=== PATIENT | female | born 1985 | race Caucasian/White ===

== ENCOUNTER 2018-09-15 23:11 | Emergency (ER) | payer OTHER ==
--- NOTE | 2018-09-15 23:24 | EDPHY ---
H & P Stated Complaint: dry cough aches sob Time Seen by Provider: 09/15/18 23:24 HPI/ROS: HPI CHIEF COMPLAINT: Cough HISTORY OF PRESENT ILLNESS: A 33-year-old female presents emergency room with cough. She has been sick since this or Thursday. It is now late Thursday night. She presents to the emergency room with a cough nonproductive , laryngitis, and shortness of breath. She denies any pleuritic pain or chest pain. States she does have a productive cough clear irving. No blood. Additionally reports some intermittent wheezing. She does have a history of asthma but never intubated or hospitalized. Past Medical History: Asthma Past Surgical History: No recent surgery Social History: Denies drugs alcohol tobacco Family History: Noncontributory ROS REVIEW OF SYSTEMS: 10 Systems were reviewed and negative with the exception of the elements mentioned in the history of present illness. Exam Constitutional appears well nontoxic no acute distress triage nursing summary reviewed, vital signs reviewed, awake/alert. Vital signs are stable afebrile nontoxic Eyes normal conjunctivae and sclera, EOMI, PERRLA. HENT posterior pharynx unremarkable, TMs clear, normal inspection, atraumatic, moist mucus membranes, no epistaxis, neck supple/ no meningismus, no raccoon eyes. Respiratory bronchitic sounding cough on exam. No significant wheezing. Good air movement. Cardiovascular rate normal, regular rhythm, no murmur, no edema, distal pulses normal. Gastrointestinal soft, non-tender, no rebound, no guarding, normal bowel sounds, no distension, no pulsatile mass. Genitourinary no CVA tenderness. Musculoskeletal no midline vertebral tenderness, full range of motion, no calf swelling, no tenderness of extremities, no meningismus, good pulses, neurovascularly intact. Skin pink, warm, & dry, no rash, skin atraumatic. Neurologic awake, alert and oriented x 3, AAOx3, moves all 4 extremities equally, motor intact, sensory intact, CN II-XII intact, normal cerebellar, normal vision, normal speech. Psychiatric normal mood/affect. Heme/Lymph/Immune no lymphadenopathy. Differential Diagnosis: Includes but is not limited to in a particular order viral syndrome, URI, tightness, pneumonia, asthma, reactive airway disease, influenza Medical Decision Making: Plan for this patient chest x-ray two view, DuoNeb breathing treatment, prednisone 60 mg, influenza and re-evaluate. Re-evaluation: Chest x-ray two view reviewed by myself. Negative for acute cardiopulmonary disease. 1255: Patient re-evaluated this time good air movement bilaterally. No acute distress. No wheezing. No hypoxia on the monitor patient requesting discharge home. Chest x-ray reviewed shows no pneumonia or disease process. Plan for patient take, albuterol inhaler 2 puffs every 4 hr as needed, prednisone x5 days, azithromycin. 1st dose given in the emergency room. Influenza noted to be negative Return precautions discussed with patient return if worsening shortness of breath, fever, not doing well. Patient is comfortable this plan. Source: Patient - Personal History LMP (Females 10-55): 8-14 Days Ago Current Tetanus/Diphtheria Vaccine: Yes Current Tetanus Diphtheria and Acellular Pertussis (TDAP): Yes - Medical/Surgical History Hx Asthma: Yes Hx Chronic Respiratory Disease: No Hx Diabetes: No Hx Cardiac Disease: No Hx Renal Disease: No Hx Cirrhosis: No Hx Alcoholism: No Hx HIV/AIDS: No Hx Splenectomy or Spleen Trauma: No - Social History Smoking Status: Never smoked Constitutional: Initial Vital Signs Temperature (C) 36.6 C 09/15/18 23:17 Heart Rate 74 09/15/18 23:17 Respiratory Rate 18 09/15/18 23:17 Blood Pressure 124/98 H 09/15/18 23:17 O2 Sat (%) 100 09/15/18 23:17 O2 Delivery Mode Room Air Allergies/Adverse Reactions: No Known Allergies Allergy (Unverified 09/15/18 23:17) Home Medications: Medication Instructions Recorded Azithromycin [Zithromax] 250 mg PO DAILY #6 tab 09/15/18 Sertraline HCl [Zoloft 100mg (*)] 09/15/18 predniSONE 60 mg PO DAILY #15 tab 09/15/18 Medical Decision Making - Diagnostics Imaging Results: Imaging Impressions Chest X-Ray 09/15/18 23:26 Impression: No acute cardiopulmonary process. - Data Points Laboratory Results: 09/15/18 23:35 Nasal Influenza A PCR NEGATIVE FOR FLU A (NEGATIVE) Nasal Influenza B PCR NEGATIVE FOR FLU B (NEGATIVE) RSV (PCR) NEGATIVE FOR RSV (NEGATIVE) Medications Given: Discontinued Medications Albuterol/Ipratropium (Duoneb) 3 ml IH EDNOW ONE Stop: 09/15/18 23:27 Last Admin: 09/15/18 23:37 Dose: 3 ml Prednisone (Prednisone) 60 mg PO EDNOW ONE Stop: 09/15/18 23:27 Last Admin: 09/15/18 23:36 Dose: 60 mg Departure - Departure Disposition: Home, Routine, Self-Care Clinical Impression: Acute bronchitis Qualifiers: Bronchitis organism: unspecified organism Qualified Code(s): J20.9 - Acute bronchitis, unspecified Condition: Good Instructions: Acute Bronchitis (ED) Additional Instructions: 1. Drink lots of fluids stay well-hydrated 2. Antibiotics as prescribed 3. Inhaler 2 puffs every 4 hr as needed for cough shortness of breath. 4. Steroids as prescribed. 5. Return to the ER for worse. Referrals: Beth Cormier MD [Primary Care Provider] - As per Instructions Prescriptions: Azithromycin [Zithromax] 250 mg PO DAILY #6 tab predniSONE 60 mg PO DAILY #15 tab
[2018-09-15] MEDS ORDERED: predniSONE 20 MG TAB PO ONE (23:26)
[2018-09-15] MEDS ORDERED: IPRATROPIUM/ALBUTEROL 3 ML DEYVIAL IH ONE (23:26)
[2018-09-16] MEDS ORDERED: AZITHROMYCIN 250 MG TAB PO ONE (00:53)
[2018-09-16] MEDS ORDERED: ALBUTEROL INH PREPACK MDI TAKEHOME ONE (00:54)
[2018-09-16 01:10] VITALS: BP 119/59
== END 2018-09-16 01:31 | disposition home or self-care (01) ==
DX: J20.9 Acute bronchitis, unspecified (principal); J45.909 Unspecified asthma, uncomplicated
CPT/HCPCS: J7512